=== PATIENT | female | born 1985 | race Two or more races ===

== ENCOUNTER 2016-07-26 20:14 | Emergency (ER) | payer MEDICAID ==
[2016-07-26] MEDS ORDERED: Sodium Chloride 0.9% 1,000 ML IV ONE (20:52)
--- NOTE | 2016-07-26 20:58 | ED Physician Chart ---
Chief Complaint/HPI - Patient Information Date Seen:: 07/26/16 Time Seen:: 20:53 Chief Complaint:: abd pain History of Present Illness:: pt here after 1 day of pains at rt side of abdomen. radiates to back on left. has noted blood tinged urine and u frequency but no dysuria. no fever. no n/v/d. no costipation. appetite ok today. not sexually active x 2 months. no pain inc w walking no hx of renal dz (other than KS as a teen) no appy dz nor gb dz. Vitals:: Vital Signs - 8 hr 07/26/16 20:25 Temp 98.1 F HR 73 RR 18 BP 150/95 O2 Sat % 100 Historian:: Patient Review of Systems - Review of Systems General/Constitutional: No fever, No chills, No weight loss, No weakness, No diaphoresis, No edema, No loss of appetite Skin: No skin lesions, No rash, No bruising Head: No headache, No light-headedness Eyes: No loss of vision, No pain, No diplopia ENT: No earache, No nasal drainage, No sore throat, No tinnitus Neck: No neck pain, No swelling, No thyromegaly, No stiffness, No mass noted Cardio Vascular: No chest pain, No palpitations, No PND, No orthopnea, No edema Pulmonary: No SOB, No cough, No sputum, No wheezing GI: No nausea, No vomiting, No diarrhea, Pain, No melena, No hematochezia, No constipation, No hematemesis G/U: No dysuria, Frequency, Hematuria Musculoskeletal: No bone or joint pain, No back pain, No muscle pain Endocrine: No polyuria, No polydipsia Psychiatric: No prior psych history, No depression, No anxiety, No suicidal ideation Hematopoietic: No bruising, No lymphadenopathy Allergic/Immuno: No urticaria, No angioedema Neurological: No syncope, No focal symptoms, No weakness, No paresthesia, No headache, No seizure, No dizziness, No confusion, No vertigo Past Medical History - Past Medical History Past Medical History: Renal stone Social History: Non Smoker, No Alcohol Medication: Reviewed Family Medical History - Family Member Mother History Unknown: Yes Physical Exam - Physical Examination General/Constitutional: Awake, Well-developed, well-nourished, Alert, No distress, GCS 15, Non-toxic appearing, Ambulatory Head: Atraumatic Eyes: Lids, conjuctiva normal, PERRL, EOMI Skin: Nl inspection, No rash, No skin lesions, No ecchymosis, Well hydrated, No lymphadenopathy ENMT: External ears, nose nl, Nasal exam nl, Lips, teeth, gums nl Neck: Nontender, Full ROM w/o pain, No JVD, No nuchal rigidity, No bruit, No mass, No stridor Respiratory: Nl effort/Exclusion, Clear to Auscultation, No Wheeze/Rhonchi/Rales Cardio Vascular: RRR, No murmur, gallop, rubs, NL S1 S2 GI: No organomegaly, No hernia, Normal BS's, Nondistended, No mass/bruits, No McBurney tenderness Other GI comments:: vague tndr rt abd..poorly localized. pos nabs. no rebound. pt moves around on bed w no obvious severe discomfort. nontoxic. wn/wh.alert Other comments:: cva tndr rt ? Extremities: No tenderness or effusion, Full ROM, normal strength in all extremities, No edema, Normal digits & nails Neuro/Psych: Alert/oriented, DTR's symmetric, Normal sensory exam, Normal motor strength, Judgement/insight normal, Mood normal, Normal gait, No focal deficits Misc: normal gait, Normal back, No paraspinal tenderness Labs/Radiology/EKG Results - Lab Results Results: Laboratory Tests 07/26/16 07/26/16 07/26/16 20:20 20:20 21:15 WBC 6.6 RBC 4.51 Hgb 13.0 Hct 38.7 MCV 85.9 MCH 28.8 MCHC Differential 33.6 RDW 11.6 Plt Count 188 MPV 8.8 Neutrophils % 63.1 Lymphocytes % 27.8 Monocytes % 5.3 Eosinophils % 3.7 Basophils % 0.1 Sodium Potassium Chloride Carbon Dioxide Anion Gap BUN Creatinine Est GFR ( Amer) Est GFR (Non-Af Amer) BUN/Creatinine Ratio Glucose Calcium Total Bilirubin AST ALT Alkaline Phosphatase Total Protein Albumin Globulin Albumin/Globulin Ratio Lipase Urine Source CLEAN C Urine Color RED Urine Clarity BLOODY H Urine pH 6.0 Ur Specific [place] 1.025 Urine Protein 100 H Urine Glucose (UA) NEGATIVE Urine Ketones TRACE Urine Blood LARGE H Urine Nitrate NEGATIVE Urine Bilirubin SMALL H Urine Ictotest NEGATIVE Urine Urobilinogen 1.0 Ur Leukocyte Esterase NEGATIVE Urine RBC >100 H Urine WBC NONE SEEN Ur Epithelial Cells MODERATE Urine Bacteria NONE SEEN Urine Test NEGATIVE 07/26/16 21:15 WBC RBC Hgb Hct MCV MCH MCHC Differential RDW Plt Count MPV Neutrophils % Lymphocytes % Monocytes % Eosinophils % Basophils % Sodium 136 Potassium 3.4 L Chloride 108 H Carbon Dioxide 24.5 Anion Gap 6.9 L BUN 15 Creatinine 0.6 Est GFR ( Amer) > 60.0 Est GFR (Non-Af Amer) > 60.0 BUN/Creatinine Ratio 25.0 Glucose 92 Calcium 9.0 Total Bilirubin 1.1 H AST 16 ALT 10 Alkaline Phosphatase 53 Total Protein 6.8 Albumin 3.9 Globulin 2.9 Albumin/Globulin Ratio 1.3 Lipase 62 Urine Source Urine Color Urine Clarity Urine pH Ur Specific [place] Urine Protein Urine Glucose (UA) Urine Ketones Urine Blood Urine Nitrate Urine Bilirubin Urine Ictotest Urine Urobilinogen Ur Leukocyte Esterase Urine RBC Urine WBC Ur Epithelial Cells Urine Bacteria Urine Test - Radiology Results Results: ct abd/p- 4.2cm liver mass..advise ct w contrast to further eval. 3mm rt ureterolith w partial obstruction ? rt ovarian cyst, appy nrml ED Septic Shock - . Is Septic Shock (SBP<90, OR Lactate>4 mmol\L) present?: No - <6hrs of presentation: Vital Signs: Vital Signs - 8 hr 07/26/16 20:25 Temp 98.1 F HR 73 RR 18 BP 150/95 O2 Sat % 100 Reassessment (Disposition) - Reassessment Reassessment:: pt most likely has pain from KS. however I cant exclude a ovarian torsion...at this point no [employer] tech is available and pt either needs to go to [place] for study or can get here in am. seems much more likely pain is from KS. also pt may need repeat ct to eval liver mass and ? if biopsey. given multiple issues dw Dr Rizvi who is admitting. pt has done very well in ed says pain not as bad and only now asking for pain med. will give . Reassessment Condition:: Improved - Diagnosis Diagnosis:: 1 rt sided abdominal /flank pain 2 3mm ureterolith rt 3 4.2 cm liver mass 4 ? rt ovarian cyst - Patient Disposition Admitted to:: Med/Surg Condition at Disposition:: Unchanged
[2016-07-26 21:33] LABS: % BASOPHILS 0.1 % (0.0-2.0); % EOSINOPHILS 3.7 % (0.0-5.0); % LYMPHOCYTES 27.8 % (20.0-50.0); % MONOCYTES 5.3 % (2.0-10.0); % NEUTROPHILS 63.1 % (40.0-80.0); HEMATOCRIT 38.7 % (35.0-45.0); MEAN CELL VOLUME 85.9 fl (81-100); MEAN CORPUSCULAR HEMOGLOBIN 28.8 pg (27.0-31.0); MEAN CORPUSCULAR HGB CONC 33.6 pg (28.0-36.0); MEAN PLATELET VOLUME 8.8 fl; NEUTROPHILE ABSOLUTE 4.3 Th/cmm (1.8-8.0); PLATELET COUNT 188 Th/cmm (150-400); RED BLOOD COUNT 4.51 Mil/cmm (3.80-5.10); RED CELL DISTRIBUTION WIDTH 11.6 % (11.5-20.0); WHITE BLOOD COUNT 6.6 Th/cmm (4.8-10.8)
[2016-07-26 21:45] LABS: ALB/GLOB RATIO 1.3 (1.0-1.8); ALKALINE PHOSPHATASE 53 U/L (34-104); ANION GAP 6.9 (7.0-16.0); BILIRUBIN,TOTAL 1.1 mg/dL (0.3-1.0); BUN - UREA NITROGEN 15 mg/dL (7-25); CARBON DIOXIDE 24.5 mEq/L (21.0-31.0); CHLORIDE 108 mEq/L (98-107); CREATININE - SERUM 0.6 mg/dL (0.6-1.2); GLUCOSE 92 mg/dL (70-105); LIPASE 62 U/L (11-82); POTASSIUM SERUM 3.4 mEq/L (3.5-5.1); SGOT 16 U/L (13-39); SGPT/ALT 10 U/L (7-52); SODIUM SERUM 136 mEq/L (136-145)
[2016-07-26 22:37] LABS: URINE COLOR RED
[2016-07-26 22:38] LABS: URINE BILIRUBIN SMALL (NEGATIVE); URINE BLOOD LARGE (NEGATIVE); URINE GLUCOSE (UA) NEGATIVE (NEGATIVE); URINE KETONE TRACE mg/dL (NEGATIVE); URINE PROTEIN 100 mg/dL (NEGATIVE)
[2016-07-26 22:39] LABS: URINE BACTERIA NONE SEEN /hpf (NONE SEEN); URINE EPITHELIAL CELLS MODERATE /lpf (FEW); URINE RBC >100 /hpf (0-5); URINE WBC NONE SEEN /hpf (0-5)
[2016-07-26] MEDS ORDERED: Morphine Sulfate 4 mg/mL 1mL Syr IVP STA (23:22)
[2016-07-26] MEDS ORDERED: Morphine Sulfate 2 mg/mL 1mL Syr IVP PRN (23:32)
[2016-07-26] MEDS ORDERED: D5-0.9%NS 1,000 ML IV SCH (23:36)
--- NOTE | 2016-07-27 15:32 | Diagnostic Imaging Report ---
CT scan abdomen and pelvis without intravenous contrast HISTORY: Pain Total DLP equals 278 CTDI equals 6.3 Axial sections were obtained from the xiphoid process down to the pubic symphysis. The exam of the liver demonstrates an approximate 4.2 cm hypodense lesion within the periphery of the anterior segment of the right lobe of the liver. Etiology is indeterminate. A dedicated [address] scan with intravenous contrast is recommended for additional characterization. The spleen appears normal. No abnormality seen in the region of the pancreas. The exam of the right kidney demonstrates mild dilatation of the collecting system. An approximate 2 mm nonobstructing calculus is seen in the medullary region. There is mild dilatation the right ureter related to an approximately 3 mm calculus in the midportion of the ureter. The exam of the pelvis demonstrates hypodensity within the right adnexal region. Findings may be associated with the ovary. No definite abnormality seen in the region of the appendix. Small amount of free fluid seen in the lower pelvis. IMPRESSION: 1. Approximate 4.2 cm hypodense lesion within the periphery of the anterior segment of the right lobe of the liver. Etiology is indeterminate. A dedicated [address] scan with and without intravenous contrast is recommended for further characterization. 2. Right adnexal fullness with hypodensity that may be associated with ovarian cystic change. A pelvic ultrasound exam would provide for further assessment if needed. 3. Small amount of free fluid in the cul-de-sac region of the pelvis. This may be on a physiologic basis and should be correlated clinically and with the menstrual status. 4. 3 mm calculus within the midportion the right ureter associated with mild hydronephrosis. Additional punctate nonobstructing right renal calculus is also seen.
== END 2016-07-27 00:25 | disposition left against medical advice (07) ==
LOC: ER 20:14 → UNDOADMIN 23:29 → MSI 23:29 → UNDODISIN 07-27 00:20
DX: N20.1 Calculus of ureter (principal); R16.0 Hepatomegaly, not elsewhere classified
CPT/HCPCS: 99285; 96361; 74176; 96374; 36415; 85025; 81001; 81025; 83690; 80053; J1885; J7030

== ENCOUNTER 2016-07-30 01:05 | Emergency (ER) | payer MEDICAID ==
--- NOTE | 2016-07-30 01:36 | ED Physician Chart ---
Chief Complaint/HPI - Patient Information Date Seen:: 07/30/16 Time Seen:: 01:10 Chief Complaint:: abdominal pain History of Present Illness:: 31-year-old female that was seen here on 07/26/2016 was noted to have a 3 mm mid right ureteral calculus at that time, complains of acute, constant, aching, radiating from the right flank to the groin, since yesterday afternoon. Was taking [place] which was helping the pain but pain got worse after she ran out of [place]. Denies nausea, vomiting, diarrhea, fevers, chest pain, palpitations, diarrhea. Reviewed old chart from previous visit Reviewed old CT scan from 07/26/2016 Allergies:: Allergies Allergy/AdvReac Type Severity Reaction Status Date / Time No Known Allergies Allergy Verified 07/26/16 20:58 Vitals:: Vital Signs - 8 hr 07/30/16 01:15 Temp 98.3 F HR 72 RR 17 BP 147/90 O2 Sat % 98 Historian:: Patient Review:: Nurse's Note Reviewed, Old Chart Reviewed Review of Systems - Review of Systems Other: Complete system review otherwise unremarkable except as noted in HPI. Past Medical History - Past Medical History Past Medical History: Other (kidney stones) Family History: None Social History: Non Smoker, No Alcohol, No Drug Use, Employed Surgical History: None Psychiatricy History: None Medication: None Family Medical History - Family Member Mother History Unknown: Yes Ethnicity: Physical Exam - Physical Examination Other:: INITIAL VITAL SIGNS: Reviewed by me GENERAL: Alert and interactive. No acute distress HEAD: Head is normocephalic and atraumatic EYES: EOMI. . No scleral icterus. No conjunctival injection ENT: Moist mucous membranes. NECK: Supple. No masses. Full range of motion RESPIRATORY: No tachypnea. Clear breath sounds bilaterally. No wheezing, rales, or rhonchi CV: Regular rate and rhythm. No murmurs, rubs, or gallops ABDOMEN: Soft, non-distended, non-tender. No guarding. No rebound. No masses. EXTREMITIES: No deformity. No cyanosis. No edema. SKIN: Warm and dry. No obvious rashes. NEUROLOGIC: Alert and oriented. Face is symmetric. Speech is normal. Moves all extremities equally. Motor and sensory distally intact. Labs/Radiology/EKG Results - Lab Results Results: Lab Results 07/30/16 07/30/16 07/30/16 Range/Units 01:30 01:30 01:41 WBC 6.1 (4.8-10.8) Th/cmm RBC 4.75 (3.80-5.10) Mil/cmm Hgb 13.6 (11.7-15.5) gm/dL Hct 39.6 (35.0-45.0) % MCV 83.2 (81-100) fl MCH 28.6 (27.0-31.0) pg MCHC Differential 34.4 (28.0-36.0) pg RDW 11.8 (11.5-20.0) % Plt Count 199 (150-400) Th/cmm MPV 8.3 fl Neutrophils % 47.4 (40.0-80.0) % Lymphocytes % 41.5 (20.0-50.0) % Monocytes % 6.4 (2.0-10.0) % Eosinophils % 4.2 (0.0-5.0) % Basophils % 0.5 (0.0-2.0) % Sodium (136-145) mEq/L Potassium (3.5-5.1) mEq/L Chloride (98-107) mEq/L Carbon Dioxide (21.0-31.0) mEq/L Anion Gap (7.0-16.0) BUN (7-25) mg/dL Creatinine (0.6-1.2) mg/dL Est GFR ( Amer) (>90) ml/min Est GFR (Non-Af Amer) ml/min BUN/Creatinine Ratio Glucose (70-105) mg/dL Calcium (8.6-10.3) mg/dL Lipase (11-82) U/L Urine Source RANDOM Urine Color YELLOW Urine Clarity CLEAR (CLEAR) Urine pH 6.5 Ur Specific [place] 1.025 (1.005-1.030) Urine Protein NEGATIVE (NEGATIVE) mg/dL Urine Glucose (UA) NEGATIVE (NEGATIVE) mg/dL Urine Ketones NEGATIVE (NEGATIVE) mg/dL Urine Blood TRACE (NEGATIVE) Urine Nitrate NEGATIVE (NEGATIVE) Urine Bilirubin NEGATIVE (NEGATIVE) Urine Urobilinogen 0.2 (0.2 - 1.0) E.U./dL Ur Leukocyte Esterase NEGATIVE (NEGATIVE) Urine RBC 2-5 (0-5) /hpf Urine WBC 0-2 (0-5) /hpf Ur Epithelial Cells FEW (FEW) /lpf Urine Bacteria FEW (NONE SEEN) /hpf Urine Test NEGATIVE 07/30/16 Range/Units 01:41 WBC (4.8-10.8) Th/cmm RBC (3.80-5.10) Mil/cmm Hgb (11.7-15.5) gm/dL Hct (35.0-45.0) % MCV (81-100) fl MCH (27.0-31.0) pg MCHC Differential (28.0-36.0) pg RDW (11.5-20.0) % Plt Count (150-400) Th/cmm MPV fl Neutrophils % (40.0-80.0) % Lymphocytes % (20.0-50.0) % Monocytes % (2.0-10.0) % Eosinophils % (0.0-5.0) % Basophils % (0.0-2.0) % Sodium 135 L (136-145) mEq/L Potassium 3.3 L (3.5-5.1) mEq/L Chloride 104 (98-107) mEq/L Carbon Dioxide 24.9 (21.0-31.0) mEq/L Anion Gap 9.4 (7.0-16.0) BUN 12 (7-25) mg/dL Creatinine 0.6 (0.6-1.2) mg/dL Est GFR ( Amer) > 60.0 (>90) ml/min Est GFR (Non-Af Amer) > 60.0 ml/min BUN/Creatinine Ratio 20.0 Glucose 101 (70-105) mg/dL Calcium 9.5 (8.6-10.3) mg/dL Lipase 79 (11-82) U/L Urine Source Urine Color Urine Clarity (CLEAR) Urine pH Ur Specific [place] (1.005-1.030) Urine Protein (NEGATIVE) mg/dL Urine Glucose (UA) (NEGATIVE) mg/dL Urine Ketones (NEGATIVE) mg/dL Urine Blood (NEGATIVE) Urine Nitrate (NEGATIVE) Urine Bilirubin (NEGATIVE) Urine Urobilinogen (0.2 - 1.0) E.U./dL Ur Leukocyte Esterase (NEGATIVE) Urine RBC (0-5) /hpf Urine WBC (0-5) /hpf Ur Epithelial Cells (FEW) /lpf Urine Bacteria (NONE SEEN) /hpf Urine Test - Radiology Results Results: CT of the abdomen pelvis dated 07/27/2016 Patient had a 4.2 cm hypodense lesion in the anterior segment of the right lobe of liver of which she was made aware on her previous visit. She is seeking outpatient follow-up. She had some right ovarian cystic changes There was a small amount of free fluid in the cul-de-sac of the pelvis There was a 3 mm calculus within the midportion of the right ureter associated with mild hydronephrosis. There were additional punctate nonobstructing right renal calculus is also seen. ED Septic Shock - . Is Septic Shock (SBP<90, OR Lactate>4 mmol\L) present?: No - <6hrs of presentation: Vital Signs: Vital Signs - 8 hr 07/30/16 01:15 Temp 98.3 F HR 72 RR 17 BP 147/90 O2 Sat % 98 Reassessment (Disposition) - Reassessment Reassessment:: The patient's blood pressure was elevated (>120/80) but appears stable without evidence of hypertensive emergency or urgency. The patient was counseled about the risks hypertension urged to pursue outpatient monitoring and therapy within a week with her primary care physician. This patient was seen here on 07/27/2016. She was noted to have 3 mm renal calculus in the right mid ureter. She feels as though this may have passed. But she is experiencing similar pain. There was noted to be additional punctate nonobstructing right renal calculus that was also seen on CT scan. She most likely is passing one of the stones. She was also noted to have some right adnexal fullness on the previous CT scan however there is no pelvic tenderness or pain that she is presenting with now.. There is no records technician available here [facility]. We have offered to transfer her to [place] for ultrasound with the patient is refusing. The patient says that she will return or follow up with her primary care physician. We discussed the possibility of ovarian torsion. Patient seems to have an understanding and has decided that she will not go through with the ultrasound. For now we will provide prescription for oral analgesics. We gave intramuscular analgesics here in the ER patient had relief. Recommended follow-up with PCP for all other findings are noted on the CT scan. Patient seemed to be aware of all of these findings. She is seeking outpatient follow-up. We recommended seeing her outpatient physician on Sunday or Sunday. Gave return to ER precautions. Patient understands and agrees with the plan. Reassessment Condition:: Improved - Diagnosis Diagnosis:: Right ureterolithiasis and ureteral colic Hypokalemia Right kidney stones 4.2 cm liver mass Questionable sided ovarian cyst Elevated blood pressure without the diagnosis of hypertension - Aftercare/Follow up Instructions Aftercare/Follow-Up Instructions:: Counseled pt regarding lab results/diagnosis & need follow up, Refer to Discharge Instructions Medication Prescribed:: [place] Ibuprofen - Patient Disposition Discharge/Transfer:: Home Time:: 01:41 Condition at Disposition:: Improved ED Discharge Plan - Patient Disposition Admit/Discharge/Transfer: PT DISCHARGED HOME Condition at Disposition: Improved Instructions: Kidney Stones, [id number], Ureteral Colic, [id number]
[2016-07-30 01:46] LABS: % BASOPHILS 0.5 % (0.0-2.0); % EOSINOPHILS 4.2 % (0.0-5.0); % LYMPHOCYTES 41.5 % (20.0-50.0); % MONOCYTES 6.4 % (2.0-10.0); % NEUTROPHILS 47.4 % (40.0-80.0); HEMATOCRIT 39.6 % (35.0-45.0); HEMOGLOBIN 13.6 gm/dL (11.7-15.5); MEAN CELL VOLUME 83.2 fl (81-100); MEAN CORPUSCULAR HEMOGLOBIN 28.6 pg (27.0-31.0); MEAN CORPUSCULAR HGB CONC 34.4 pg (28.0-36.0); MEAN PLATELET VOLUME 8.3 fl; NEUTROPHILE ABSOLUTE 2.9 Th/cmm (1.8-8.0); PLATELET COUNT 199 Th/cmm (150-400); RED BLOOD COUNT 4.75 Mil/cmm (3.80-5.10); RED CELL DISTRIBUTION WIDTH 11.8 % (11.5-20.0); WHITE BLOOD COUNT 6.1 Th/cmm (4.8-10.8)
[2016-07-30 01:51] LABS: URINE BILIRUBIN NEGATIVE (NEGATIVE); URINE BLOOD TRACE (NEGATIVE); URINE COLOR YELLOW; URINE GLUCOSE (UA) NEGATIVE (NEGATIVE); URINE KETONE NEGATIVE (NEGATIVE); URINE PH 6.5; URINE PROTEIN NEGATIVE (NEGATIVE); URINE UROBILINOGEN 0.2 E.U./dL (0.2 - 1.0)
[2016-07-30 01:52] LABS: URINE BACTERIA FEW /hpf (NONE SEEN); URINE EPITHELIAL CELLS FEW /lpf (FEW); URINE WBC 0-2 /hpf (0-5)
[2016-07-30 02:04] LABS: ANION GAP 9.4 (7.0-16.0); BUN - UREA NITROGEN 12 mg/dL (7-25); CALCIUM SERUM 9.5 mg/dL (8.6-10.3); CARBON DIOXIDE 24.9 mEq/L (21.0-31.0); CHLORIDE 104 mEq/L (98-107); CREATININE - SERUM 0.6 mg/dL (0.6-1.2); GLUCOSE 101 mg/dL (70-105); LIPASE 79 U/L (11-82); POTASSIUM SERUM 3.3 mEq/L (3.5-5.1); SODIUM SERUM 135 mEq/L (136-145)
[2016-07-30] MEDS ORDERED: Potassium Chloride 20 mEq ER Tab PO ONE ×2 (02:12→02:14)
== END 2016-07-30 02:31 | disposition home or self-care (01) ==
LOC: ER 01:05
DX: N20.1 Calculus of ureter (principal); E87.6 Hypokalemia; N20.0 Calculus of kidney; R03.0 Elevated blood-pressure reading, without diagnosis of hypertension
CPT/HCPCS: 99284; 96372; 36415; 85025; 81001; 81025; 83690; 80048; J1885; Z7502

== ENCOUNTER 2016-12-08 13:55 | Emergency (ER) | payer MEDICAID ==
[2016-12-08 14:30] LABS: % BASOPHILS 0.8 % (0.0-2.0); % EOSINOPHILS 0.8 % (0.0-5.0); % LYMPHOCYTES 14.8 % (20.0-50.0); % MONOCYTES 5.2 % (2.0-10.0); % NEUTROPHILS 78.4 % (40.0-80.0); HEMATOCRIT 42.6 % (35.0-45.0); HEMOGLOBIN 14.2 gm/dL (11.7-15.5); MEAN CELL VOLUME 85.1 fl (81-100); MEAN CORPUSCULAR HEMOGLOBIN 28.4 pg (27.0-31.0); MEAN CORPUSCULAR HGB CONC 33.4 pg (28.0-36.0); MEAN PLATELET VOLUME 8.4 fl; NEUTROPHILE ABSOLUTE 6.8 Th/cmm (1.8-8.0); PLATELET COUNT 202 Th/cmm (150-400); RED CELL DISTRIBUTION WIDTH 12.2 % (11.5-20.0)
[2016-12-08] MEDS ORDERED: Acetaminophen 500 MG TAB ONE (14:37)
--- NOTE | 2016-12-08 14:43 | ED Physician Chart ---
Chief Complaint/HPI - Patient Information Date Seen:: 12/08/16 Time Seen:: 14:08 Chief Complaint:: body aches History of Present Illness:: THIS IS A 31 YO FEMALE WITH WHOLE BODY ACHES AND A SORE THROAT ON THE LEFT SIDE THAT STARTED LAST NIGHT. SHE IS NOT SURE WHETHER SHE HAS A FEVER OR NOT. SHE DENIES , COUGH,CHEST CONGESTION AND DYSURIA. SHE ADMITS TO A HISTORY OF RENAL STONES AND A LIVER LESION. SHE DENIES NAUSEA AND VOMITING. SHE DENIES DIARRHEA AND CONSTIPATION. Allergies:: Allergies Allergy/AdvReac Type Severity Reaction Status Date / Time No Known Allergies Allergy Verified 07/26/16 20:58 Vitals:: Vital Signs - 8 hr 12/08/16 14:02 Temp 100.9 F HR 97 RR 16 BP 132/95 O2 Sat % 98 Historian:: Patient Review:: Nurse's Note Reviewed Review of Systems - Review of Systems General/Constitutional: Fever, No chills, No weight loss, No weakness, No diaphoresis, No edema, No loss of appetite Skin: No skin lesions, No rash, No bruising Head: No headache, No light-headedness Eyes: No loss of vision, No pain, No diplopia ENT: No earache, No nasal drainage, Sore throat, No tinnitus Neck: No neck pain, No swelling, No thyromegaly, No stiffness, No mass noted Cardio Vascular: No chest pain, No palpitations, No PND, No orthopnea, No edema Pulmonary: No SOB, No cough, No sputum, No wheezing GI: No nausea, No vomiting, No diarrhea, No pain, No melena, No hematochezia, No constipation, No hematemesis G/U: No dysuria, No frequency, No hematuria Musculoskeletal: No bone or joint pain, No back pain, Muscle pain Endocrine: No polyuria, No polydipsia Psychiatric: No prior psych history, No depression, No anxiety, No suicidal ideation Hematopoietic: No bruising, No lymphadenopathy Allergic/Immuno: No urticaria, No angioedema Neurological: No syncope, No focal symptoms, No weakness, No paresthesia, No headache, No seizure, No dizziness, No confusion, No vertigo Past Medical History - Past Medical History Obtainable: Yes Past Medical History: Renal stone Family History: None Social History: Non Smoker, No Alcohol, No Drug Use Surgical History: None Psychiatricy History: None Medication: Reviewed Family Medical History - Family Member Mother History Unknown: Yes Ethnicity: Physical Exam - Physical Examination General/Constitutional: Awake, Well-developed, well-nourished, Alert, No distress, GCS 15, Non-toxic appearing, Ambulatory Head: Atraumatic Eyes: Lids, conjuctiva normal, PERRL, EOMI Skin: Nl inspection, No rash, No skin lesions, No ecchymosis, Well hydrated, No lymphadenopathy ENMT: External ears, nose nl, Nasal exam nl, Lips, teeth, gums nl Other ENMT comments:: POSTERIOR PHARYNX IS RED AND SWOLLEN ON THE LEFT SIDE Neck: Nontender, Full ROM w/o pain, No JVD, No nuchal rigidity, No bruit, No mass, No stridor Respiratory: Nl effort/Exclusion, Clear to Auscultation, No Wheeze/Rhonchi/Rales Cardio Vascular: RRR, No murmur, gallop, rubs, NL S1 S2 GI: No tenderness/rebounding/guarding, No organomegaly, No hernia, Normal BS's, Nondistended, No mass/bruits, No McBurney tenderness : No CVA tenderness Extremities: No tenderness or effusion, Full ROM, normal strength in all extremities, No edema, Normal digits & nails Neuro/Psych: Alert/oriented, DTR's symmetric, Normal sensory exam, Normal motor strength, Judgement/insight normal, Mood normal, Normal gait, No focal deficits Misc: normal gait, Normal back, No paraspinal tenderness Labs/Radiology/EKG Results - Lab Results Results: Laboratory Results - last 24 hr 12/08/16 12/08/16 12/08/16 14:10 14:20 14:20 WBC 8.8 D RBC 5.00 Hgb 14.2 Hct 42.6 MCV 85.1 MCH 28.4 MCHC Differential 33.4 RDW 12.2 Plt Count 202 MPV 8.4 Neutrophils % 78.4 Lymphocytes % 14.8 L Monocytes % 5.2 Eosinophils % 0.8 Basophils % 0.8 Sodium 131 L Potassium 3.5 Chloride 103 Carbon Dioxide 22.8 Anion Gap 8.7 BUN 11 Creatinine 0.6 Est GFR ( Amer) > 60.0 Est GFR (Non-Af Amer) > 60.0 BUN/Creatinine Ratio 18.3 Glucose 92 Calcium 9.3 Total Bilirubin 2.3 H AST 18 ALT 14 Alkaline Phosphatase 69 Total Protein 7.3 Albumin 4.5 Globulin 2.8 Albumin/Globulin Ratio 1.6 Urine Test NEGATIVE ED Septic Shock - . Is Septic Shock (SBP<90, OR Lactate>4 mmol\L) present?: No - <6hrs of presentation: Vital Signs: Vital Signs - 8 hr 12/08/16 14:02 Temp 100.9 F HR 97 RR 16 BP 132/95 O2 Sat % 98 Reassessment (Disposition) - Reassessment Reassessment Condition:: Improved - Diagnosis Diagnosis:: ACUTER PHARYNGITIS FEVER - Aftercare/Follow up Instructions Aftercare/Follow-Up Instructions:: Counseled pt regarding lab results/diagnosis & need follow up, Refer to Discharge Instructions, Counseled pt & family regarding lab results/diagnosis & need follow up Medication Prescribed:: Z-MEGAN - Patient Disposition Discharge/Transfer:: Home Condition at Disposition:: Improved ED Discharge Plan - Patient Disposition Admit/Discharge/Transfer: PT DISCHARGED HOME Condition at Disposition: Improved Additional Instructions: TOLERATED.
[2016-12-08 14:46] LABS: ALB/GLOB RATIO 1.6 (1.0-1.8); ALKALINE PHOSPHATASE 69 U/L (34-104); ANION GAP 8.7 (7.0-16.0); BILIRUBIN,TOTAL 2.3 mg/dL (0.3-1.0); BUN - UREA NITROGEN 11 mg/dL (7-25); BUN/CREATININE RATIO 18.3; CALCIUM SERUM 9.3 mg/dL (8.6-10.3); CARBON DIOXIDE 22.8 mEq/L (21.0-31.0); CHLORIDE 103 mEq/L (98-107); CREATININE - SERUM 0.6 mg/dL (0.6-1.2); GLUCOSE 92 mg/dL (70-105); POTASSIUM SERUM 3.5 mEq/L (3.5-5.1); SGOT 18 U/L (13-39); SGPT/ALT 14 U/L (7-52); SODIUM SERUM 131 mEq/L (136-145)
[2016-12-08 15:02] LABS: WHITE BLOOD COUNT 8.8 Th/cmm (4.8-10.8)
[2016-12-08 15:10] LABS: URINE BILIRUBIN NEGATIVE (NEGATIVE); URINE BLOOD NEGATIVE (NEGATIVE); URINE COLOR YELLOW; URINE GLUCOSE (UA) NEGATIVE (NEGATIVE); URINE KETONE NEGATIVE (NEGATIVE); URINE PH 6.5; URINE PROTEIN NEGATIVE (NEGATIVE); URINE UROBILINOGEN 0.2 E.U./dL (0.2 - 1.0)
[2016-12-08 15:11] LABS: URINE BACTERIA NONE SEEN /hpf (NONE SEEN); URINE EPITHELIAL CELLS NONE SEEN /lpf (FEW); URINE RBC NONE SEEN /hpf (0-5)
[2016-12-08 15:44] LABS: INR 0.94 (0.5-1.4); PROTHROMBIN TIME (TEST) 9.8 SECONDS (9.5-11.5)
== END 2016-12-08 15:10 | disposition home or self-care (01) ==
LOC: ER 13:55
DX: J02.9 Acute pharyngitis, unspecified (principal)
CPT/HCPCS: 99284; 96372; 36415; 84443; 86592; 85025; 85610; 81001; 81025; 80053; J0696; Z7502; Z7610